=== PATIENT | male | born 1960 | race Two or more races ===

== ENCOUNTER 2022-09-04 10:09 | Outpatient (CLI) | payer OTHER | END 2022-09-04 10:30 | disposition home or self-care (01) | LOC: TOM 10:09 | PROVIDERS: ATTEND Urology | DX: N20.0 Calculus of kidney (principal) ==

== ENCOUNTER 2022-12-15 08:39 | Outpatient (CLI) | payer OTHER | END 2022-12-15 08:40 | disposition home or self-care (01) | LOC: LAB 08:39 | PROVIDERS: ATTEND Urology | DX: N00.0 Acute nephritic syndrome with minor glomerular abnormality (principal) ==

== ENCOUNTER → 2023-05-01 08:42 | Outpatient (CLI) | payer OTHER | END | disposition home or self-care (01) | LOC: LAB 08:42 | PROVIDERS: ATTEND Urology | DX: N20.0 Calculus of kidney (principal) ==

== ENCOUNTER 2024-09-01 09:17 | Outpatient (CLI) | payer OTHER | END 2024-09-01 09:21 | disposition home or self-care (01) | LOC: SONOGRAMA 09:17 | DX: K76.0 Fatty (change of) liver, not elsewhere classified (principal) ==